=== PATIENT | female | born 2000 | race Two or more races ===

== ENCOUNTER 2025-07-06 10:51 | Outpatient (CLI) | payer MEDICAID ==
[2025-07-06 11:46] LABS: Hematocrit 41.7 % (36.0-46.0); Hemoglobin 14.8 g/dL (12.2-16.2); Mean Corpuscular Hemoglobin 32.3 pg (28.0-32.0); Mean Corpuscular Volume 90.9 fL (80.0-100.0); Nucleated Red Blood Cells % 0.0 %
[2025-07-06 12:16] LABS: Thyroid Stimulating Hormone 1.09 uIU/mL (0.55-4.78)
[2025-07-06 12:25] LABS: Beta HCG, Quantitative 103885.1 mIU/mL (1.5-4.2)
[2025-07-06 13:01] LABS: Cannabinoid Screen, Urine Pos (NEGATIVE)
[2025-07-06 13:18] LABS: Amphetamine Screen, Urine Neg (NEGATIVE); Barbiturate Scree,Urine Neg (NEGATIVE); Benzodiazephine Screen, Urine Neg (NEGATIVE); Cocaine Screen, Urine Neg (NEGATIVE); Opiate Scree,Urine Neg (NEGATIVE); Phencyclidine Screen, Urine Neg (NEGATIVE)
[2025-07-08 02:06] LABS: Chlamydia Trachomatis, NAA Negative (Negative); Neisseria gonorrhoeae, NAA Negative (Negative)
== END 2025-07-06 17:00 | disposition home or self-care (01) ==
LOC: LAB 10:51
PROVIDERS: ATTEND Obstetrics & Gynecology
DX: O23.40 Unspecified infection of urinary tract in pregnancy, unspecified trimester (principal); N39.0 Urinary tract infection, site not specified; O26.899 Other specified pregnancy related conditions, unspecified trimester; E78.2 Mixed hyperlipidemia; Z3A.00 Weeks of gestation of pregnancy not specified
CPT/HCPCS: 36415; 80307; 83036; 84439; 84443; 84702; 85025; 86703; 86762; 86787; 86850; 86900; 86901; 87086; 87340